=== PATIENT | male | born 1955 | race Caucasian/White ===

== ENCOUNTER 2017-03-03 23:07 | Emergency (ER) | payer OTHER ==
[2017-03-04] MEDS ORDERED: DIPH,PERTUSS(ACELL),TET VAC/PF 0.5 ML VIAL IM ONE (00:07)
[2017-03-04 00:30] LABS: A/G RATIO 1.4; ALBUMIN 4.6 g/dL (3.5-5.0); ALKALINE PHOSPHATASE 88 U/L (38-126); ALT 42 U/L (21-72); AST 29 U/L (17-59); BILIRUBIN, TOTAL 2.3 mg/dL (0.2-1.3); BLOOD UREA NITROGEN 27 mg/dL (9-20); CALCIUM 9.5 mg/dL (8.4-10.2); CHLORIDE 106 mmol/L (98-107); EST GLOMERULAR FILTRATION RATE > 60 mL/min; GLUCOSE 99 mg/dL (70-100); POTASSIUM 3.6 mmol/L (3.5-5.1); SODIUM 142 mmol/L (137-145)
[2017-03-04 00:31] LABS: BASOPHILS 0.3 % (0.0-2.0); EOSINOPHILS 1.8 % (0.0-6.0); EOSINOPHILS# 0.2 X 10^3uL (0.0-0.4); HEMATOCRIT 53.5 % (42.0-54.0); HEMOGLOBIN 18.3 g/dL (14.0-18.0); LYMPHOCYTES 20.7 % (20.0-40.0); LYMPHOCYTES# 2.2 X 10^3uL (0.8-3.8); MEAN CELL VOLUME 85.6 fL (80.0-100.0); MEAN CORPUS. HGB CONCENTRATION 34.2 g/dL (32.0-36.0); MEAN CORPUSCULAR HEMOGLOBIN 29.3 pg (29.0-35.0); MEAN PLATELET VOLUME 8.5 fL (7.4-10.4); MONOCYTES 6.7 % (2.0-10.0); MONOCYTES# 0.7 X 10^3uL (0.2-1.0); NEUTROPHILS 70.5 % (54.0-75.0); NEUTROPHILS# 7.5 X 10^3uL (2.6-6.7); PLATELET COUNT 202 X 10^3uL (130-440); RED BLOOD COUNT 6.26 X 10^6uL (4.20-6.10); RED CELL DISTRIBUTION WIDTH 12.8 % (11.5-14.5); WHITE BLOOD COUNT 10.6 X 10^3uL (3.9-10.7)
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
--- NOTE | 2017-03-04 10:58 | RADIOLOGY REPORT ---
Three views of the left elbow demonstrates no displaced fracture or dislocation. The joints appear unremarkable. IMPRESSION: No displaced injury.If clinically indicated, further evaluation and /or follow-up may be of benefit. KELLYD
--- NOTE | 2017-03-04 10:59 | RADIOLOGY REPORT ---
Three views of the left hand demonstrate no displaced fracture or dislocation. The joints appear unremarkable. IMPRESSION: No displaced injury. If clinically indicated, further evaluation and/or follow-up may be of benefit. KELLYD
--- NOTE | 2017-03-04 11:00 | RADIOLOGY REPORT ---
Three views of the left knee demonstrate no displaced fracture or dislocation. The joints appear unremarkable. Impression: No displaced injury i s identified. If clinically indicated, further evaluation and/or follow-up may be of benefit. HALLEY
== END 2017-03-04 02:48 | disposition home or self-care (01) ==
LOC: ER 23:07
DX: S51.812A Laceration without foreign body of left forearm, initial encounter (principal); S00.93XA Contusion of unspecified part of head, initial encounter; S01.91XA Laceration without foreign body of unspecified part of head, initial encounter; R10.84 Generalized abdominal pain; M25.522 Pain in left elbow; M25.562 Pain in left knee; M79.642 Pain in left hand; M54.6 Pain in thoracic spine; M54.5 Low back pain; T07 Unspecified multiple injuries; V48.5XXA Car driver injured in noncollision transport accident in traffic accident, initial encounter; Y92.410 Unspecified street and highway as the place of occurrence of the external cause; Z23 Encounter for immunization; Z74.3 Need for continuous supervision
CPT/HCPCS: 12032; 70450; 71260; 72125; 74177; 80053; 85025; 90471; 96360; 96361; 99284; A0425; A0429

== ENCOUNTER 2017-03-10 15:38 | Emergency (ER) | payer OTHER ==
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
== END 2017-03-10 15:46 | disposition home or self-care (01) ==
LOC: ER 15:38
DX: Z48.02 Encounter for removal of sutures (principal); S51.812D Laceration without foreign body of left forearm, subsequent encounter